=== PATIENT | male | born 1995 | race Caucasian/White ===

== ENCOUNTER 2016-08-23 10:44 | Emergency (ER) | payer OTHER ==
[2016-08-23 10:57] VITALS: BP 129/72
--- NOTE | 2016-08-23 11:16 | UC ---
GI Bleed HPI - HPI Summary HPI Summary: + RECTAL BLEEDING THIS MORNING AFTER A BOWEL MOVEMENT + RECTAL ITCHY AND SOME PAIN NO DIARRHEA OR CONSTIPATION , NO ABDOMINAL PAIN - History Of Current Complaint Chief Complaint: UCGeneralIllness Stated Complaint: BLOOD IN STOOL Time Seen by Provider: 08/23/16 10:47 Hx Obtained From: Patient Onset/Duration: Sudden Onset, Lasting Days - 1, Still Present Timing: Intermittent Episodes Lasting: - 30 MIN Severity: Blood-Streaked Stool Severity Initially: Moderate Severity Currently: Moderate Associated Pain: None Character: Not Applicable Aggravating Factor(s): Bowel Movement Associated Signs And Symptoms: Negative: Back Pain, Pallor, Dizziness, Weakness , Syncope, Constipation, Nausea, Rectal Pain, Bruising, Weight Loss, Recent Abnormal Coagulation Studies - Allergies/Home medications Allergies/Adverse Reactions: Allergies Allergy/AdvReac Type Severity Reaction Status Date / Time Sulfamethoxazole Allergy Hives Verified 08/23/16 10:57 w/Trimethoprim [From Bactrim] Home Medications: Home Medications Cholecalciferol [Vitamin D3] 1,000 unit PO DAILY 08/23/16 [History Confirmed ] Dornase Leroy (Nf) [Pulmozyme (NF)] DAILY 08/23/16 [History] Kalydeco 150 mg BID 08/23/16 [History] Omeprazole CAP* [Prilosec CAP* 20 MG] 40 mg DAILY 08/23/16 [History Confirmed ] PMH/Surg Hx/FS Hx/Imm Hx Previously Healthy: Yes - Surgical History Surgical History: Yes Surgery Procedure, Year, and Place: SINUS SURGERY 2000 - Family History Known Family History: Negative: Diabetes - Social History Alcohol Use: Occasionally Substance Use Type: None Smoking Status (MU): Never Smoked Tobacco Review of Systems Constitutional: Negative Skin: Negative Eyes: Negative ENT: Negative Respiratory: Negative Cardiovascular: Negative Gastrointestinal: Other - RECTAL BLEEDING All Other Systems Reviewed And Are Negative: Yes Physical Exam Triage Information Reviewed: Yes Appearance: Well-Appearing, No Pain Distress, Well-Nourished Vital Signs: Initial Vital Signs Temp 98.4 F 08/23/16 10:51 Pulse 69 08/23/16 10:51 Resp 16 08/23/16 10:51 BP 129/72 08/23/16 10:51 Pulse Ox 100 08/23/16 10:51 Vital Signs Reviewed: Yes Eye Exam: Normal Eyes: Positive: Conjunctiva Clear ENT: Positive: Normal ENT inspection, Hearing grossly normal, Pharynx normal Neck exam: Normal Neck: Positive: Supple, Nontender, No Lymphadenopathy Respiratory Exam: Normal Respiratory: Positive: Chest non-tender, Lungs clear, Normal breath sounds Cardiovascular: Positive: RRR, No Murmur, Pulses Normal Abdominal Exam: Normal Abdomen Description: Positive: Nontender, No Organomegaly, Soft, Bruit, Other: - RECTAL EXAM : NO BLEEDING SEEN , + INTERNAL HEMORROID , Bleed Course/Dx - Differential Dx/Diagnosis Provider Diagnoses: RECTAL BLEEDING Discharge - Discharge Plan Condition: Stable Disposition: HOME Prescriptions: Hydrocortisone (Rectal) [Hydrocortisone] 1 % MD TID #1 tube Patient Education Materials: Rectal Bleeding (ED) Additional Instructions: INTERNAL HEMORRHOIDS INCREASE FLUID, INCREASE FIBER IN YOUR DIET FOLLOW UP WITH YOUR PCP IN ONE WEEK IF NOT BETTER.
== END 2016-08-23 11:27 | disposition home or self-care (01) ==
LOC: UCCORT 10:44
DX: K62.5 Hemorrhage of anus and rectum (principal); K64.8 Other hemorrhoids; Z88.2 Allergy status to sulfonamides
CPT/HCPCS: 99202; G0463